=== PATIENT | female | born 1990 | race Caucasian/White ===

== ENCOUNTER → 2017-09-20 | Outpatient (CLI) | payer OTHER ==
[~2017-09-20] MED LIST: ESCI10 PO; Percocet 5-3251 EACH PO
== END ==
LOC: LAB 10:29 → LAB SHORT 10:29
PROVIDERS: Registered Nurse Community Health
DX: Z12.4 Encounter for screening for malignant neoplasm of cervix (principal); N94.89 Other specified conditions associated with female genital organs and menstrual cycle
CPT/HCPCS: 87529; G0123

== ENCOUNTER → 2019-11-01 | Outpatient (CLI) | payer OTHER | END | disposition home or self-care (01) | LOC: LAB SHORT 16:23 → LAB 16:23 | DX: Z34.03 Encounter for supervision of normal first pregnancy, third trimester (principal); Z3A.36 36 weeks gestation of pregnancy | CPT/HCPCS: 87081; 87147; 87184; 87653 ==

== ENCOUNTER 2019-11-27 01:48 | Inpatient (IN) | payer OTHER ==
[~2019-11-27] VITALS: Ht 157.5 cm; Wt 100.0 kg
[2019-11-27 10:15] LABS: BASOPHILS ABSOLUTE AUTO 0.02 K/mm3 (0.00-0.23); BASOPHILS PERCENT AUTO 0 % (0-2); EOSINOPHILS ABSOLUTE AUTO 0.07 K/mm3 (0.00-0.68); EOSINOPHILS PERCENT AUTO 1 % (0-6); Hematocrit 36.8 % (33.0-51.0); Hemoglobin 12.2 g/dL (11.5-16.0); IMMATURE GRAN ABSOLUTE AUTO 0.05 K/mm3 (0.00-0.10); IMMATURE GRAN PERCENT AUTO 0 % (0-1); LYMPHOCYTES ABSOLUTE AUTO 0.95 K/mm3 (0.84-5.20); LYMPHOCYTES PERCENT AUTO 6 % (21-46); MONOCYTES ABSOLUTE AUTO 0.61 K/mm3 (0.16-1.47); MONOCYTES PERCENT AUTO 4 % (4-13); Mean Corpuscular HGB 28.6 pg (26.0-34.0); Mean Corpuscular HGB Conc 33.2 g/dL (31.5-36.5); Mean Corpuscular Volume 86 fL (80-100); Mean Platelet Volume 9.3 fL (9.1-12.4); NEUTROPHILS ABSOLUTE AUTO 13.26 K/mm3 (1.96-9.15); NEUTROPHILS PERCENT AUTO 89 % (41-73); Platelet Count 190 K/mm3 (150-400); RDW Coefficient Variation 13.7 % (11.7-14.2); RDW Standard Deviation 42.7 fL (35.1-46.3); Red Blood Cell Count 4.27 M/mm3 (3.80-5.20); White Blood Cell Count 14.96 K/mm3 (4.00-11.30)
--- NOTE | 2019-11-28 04:02 | NUR ---
[id number] FROM Tito ROCHA RN, ASSUMED CARE OF PT AT THIS TIME
[2019-11-28 12:32] LABS: BASOPHILS ABSOLUTE AUTO 0.02 K/mm3 (0.00-0.23); BASOPHILS PERCENT AUTO 0 % (0-2); EOSINOPHILS ABSOLUTE AUTO 0.03 K/mm3 (0.00-0.68); EOSINOPHILS PERCENT AUTO 0 % (0-6); Hematocrit 33.7 % (33.0-51.0); Hemoglobin 10.8 g/dL (11.5-16.0); IMMATURE GRAN ABSOLUTE AUTO 0.05 K/mm3 (0.00-0.10); IMMATURE GRAN PERCENT AUTO 0 % (0-1); LYMPHOCYTES PERCENT AUTO 9 % (21-46); MONOCYTES PERCENT AUTO 6 % (4-13); Mean Corpuscular HGB 28.3 pg (26.0-34.0); Mean Corpuscular Volume 88 fL (80-100); Mean Platelet Volume 9.4 fL (9.1-12.4); NEUTROPHILS ABSOLUTE AUTO 12.61 K/mm3 (1.96-9.15); NEUTROPHILS PERCENT AUTO 84 % (41-73); Platelet Count 150 K/mm3 (150-400); RDW Coefficient Variation 14.1 % (11.7-14.2); RDW Standard Deviation 45.1 fL (35.1-46.3); Red Blood Cell Count 3.82 M/mm3 (3.80-5.20); White Blood Cell Count 15.01 K/mm3 (4.00-11.30)
--- NOTE | 2019-11-28 15:29 | NUR ---
RN ROUNDED TO HELP W/ . NB ATTEMPTING TO LATCH, WILL NOT STAY LATCHED AND IS COMING OFF AND ON THE BREAST. INSTRUCT/DEMO ORAL EXERCISES TO DO BEFORE EACH FEED TO HELP NB COORDINATE SUCK AND DROP BACK OF TONGUE. NIPPLES FLAT, SHIELD GIVEN TO HELP W/ LATCHING UNTIL SUCK CAN BECOME MORE COORDINATED. INSTRUCTED TO OVER BREAST EVERY 2-3 HOURS. PARENTS VERBALIZED UNDERSTANDING, DENY ANY FURTHER QUESTIONS OR CONCERNS.
== END 2019-11-29 11:39 | disposition home or self-care (01) | DRG 807 ==
LOC: OBS 01:48 → BC 01:50 → OBS 08:26 → BC 19:59
PROVIDERS: ADMIT Obstetrics & Gynecology
PROC: 00HU33Z Insertion of Infusion Device into Spinal Canal, Percutaneous Approach (ICD-10-PCS; 2019-11-27)
PROC: 3E0R3BZ Introduction of Anesthetic Agent into Spinal Canal, Percutaneous Approach (ICD-10-PCS; 2019-11-27)
PROC: 10D07Z6 Extraction of Products of Conception, Vacuum, Via Natural or Artificial Opening (ICD-10-PCS; principal; 2019-11-28)
PROC: 0HQ9XZZ Repair Perineum Skin, External Approach (ICD-10-PCS; 2019-11-28)
DX: O47.9 False labor, unspecified (principal); Z37.0 Single live birth; O62.1 Secondary uterine inertia; O70.0 First degree perineal laceration during delivery; O75.81 Maternal exhaustion complicating labor and delivery; Z3A.39 39 weeks gestation of pregnancy; O99.214 Obesity complicating childbirth; E66.01 Morbid (severe) obesity due to excess calories; O66.5 Attempted application of vacuum extractor and forceps
CPT/HCPCS: 36415; 51702; 59025; 85025; 86850; 86900; 86901; J1885; J2001; J2270; J2550; J2590; J3010; J7120; U0003

== ENCOUNTER → 2020-11-05 | Outpatient (CLI) | payer OTHER | END | disposition home or self-care (01) | LOC: LAB 12:00 → LAB SHORT 12:00 | DX: R30.0 Dysuria (principal) | CPT/HCPCS: 87077; 87086; 87186 ==

== ENCOUNTER → 2021-08-20 | Outpatient (CLI) | payer OTHER ==
[~2021-08-20] MED LIST changes: +C COMPLEX1000 M1 PO; +FENO145 PO; +HYDHCL25 PO; +IBUP800 PO; +IRON18 MG PO; +OMEP20ER PO; +PRENATAL TABLE1 EAC9 PO; +PSYSENPA PO; +SIMV80 PO; +VENL150ER PO; +VITAMIN D5000 UNIT PO
== END | disposition home or self-care (01) ==
LOC: LAB SHORT 14:50 → LAB 14:50
DX: Z34.83 Encounter for supervision of other normal pregnancy, third trimester (principal); Z3A.36 36 weeks gestation of pregnancy
CPT/HCPCS: 87081; 87150; 87184

== ENCOUNTER 2021-09-09 07:54 | Inpatient (IN) | payer OTHER ==
[~2021-09-09] VITALS: Ht 157.5 cm; Wt 98.0 kg
[~2021-09-09 07:54] MED LIST changes: -C COMPLEX1000 M1 PO; -FENO145 PO; -HYDHCL25 PO; -IBUP800 PO; -IRON18 MG PO; -OMEP20ER PO; -PRENATAL TABLE1 EAC9 PO; -PSYSENPA PO; -SIMV80 PO; -VENL150ER PO; -VITAMIN D5000 UNIT PO
[2021-09-09] MEDS ORDERED: VENL150ER PO (08:42)
[2021-09-09] MEDS ORDERED: PRENATAL TABLE1 EAC9 PO (08:42)
[2021-09-09 08:43] LABS: BASOPHILS ABSOLUTE AUTO 0.04 K/mm3 (0.00-0.23); BASOPHILS PERCENT AUTO 0 % (0-2); EOSINOPHILS ABSOLUTE AUTO 0.06 K/mm3 (0.00-0.68); EOSINOPHILS PERCENT AUTO 1 % (0-6); Hematocrit 32.7 % (33.0-51.0); Hemoglobin 11.3 g/dL (11.5-16.0); IMMATURE GRAN ABSOLUTE AUTO 0.05 K/mm3 (0.00-0.10); IMMATURE GRAN PERCENT AUTO 0 % (0-1); LYMPHOCYTES ABSOLUTE AUTO 1.73 K/mm3 (0.84-5.20); LYMPHOCYTES PERCENT AUTO 14 % (21-46); MONOCYTES PERCENT AUTO 5 % (4-13); Mean Corpuscular HGB 28.1 pg (26.0-34.0); Mean Corpuscular HGB Conc 34.6 g/dL (31.5-36.5); Mean Corpuscular Volume 81 fL (80-100); Mean Platelet Volume 9.6 fL (9.1-12.4); NEUTROPHILS ABSOLUTE AUTO 9.84 K/mm3 (1.96-9.15); NEUTROPHILS PERCENT AUTO 80 % (41-73); Platelet Count 190 K/mm3 (150-400); RDW Coefficient Variation 13.7 % (11.7-14.2); Red Blood Cell Count 4.02 M/mm3 (3.80-5.20); White Blood Cell Count 12.32 K/mm3 (4.00-11.30)
[2021-09-09] MEDS ORDERED: FENO145 PO (08:43)
[2021-09-09] MEDS ORDERED: HYDHCL25 PO (08:44)
[2021-09-09] MEDS ORDERED: OMEP20ER PO (08:44)
[2021-09-09] MEDS ORDERED: VITAMIN D5000 UNIT PO (08:46)
[2021-09-09] MEDS ORDERED: C COMPLEX1000 M1 PO (08:47)
[2021-09-09] MEDS ORDERED: PSYSENPA PO (08:47)
[2021-09-09] MEDS ORDERED: SIMV80 PO (08:48)
[2021-09-09] MEDS ORDERED: IRON18 MG PO (08:48)
[2021-09-09 10:32] LABS: PO2 Cord - Arterial 14.4 mmHg (16-20); pH Cord - Arterial 7.39 (7.28-7.35)
[2021-09-09 10:39] LABS: PCO2 Cord - Venous 27.1 mmHg (40-50); PO2 Cord - Venous 17.4 mmHg (28-32); pH Umbilical Cord - Venous 7.48 (7.26-7.35)
[2021-09-10 06:23] LABS: BASOPHILS ABSOLUTE AUTO 0.05 K/mm3 (0.00-0.23); BASOPHILS PERCENT AUTO 0 % (0-2); EOSINOPHILS ABSOLUTE AUTO 0.19 K/mm3 (0.00-0.68); EOSINOPHILS PERCENT AUTO 2 % (0-6); Hematocrit 31.3 % (33.0-51.0); Hemoglobin 10.4 g/dL (11.5-16.0); IMMATURE GRAN ABSOLUTE AUTO 0.07 K/mm3 (0.00-0.10); IMMATURE GRAN PERCENT AUTO 1 % (0-1); LYMPHOCYTES ABSOLUTE AUTO 2.69 K/mm3 (0.84-5.20); LYMPHOCYTES PERCENT AUTO 22 % (21-46); MONOCYTES ABSOLUTE AUTO 0.67 K/mm3 (0.16-1.47); MONOCYTES PERCENT AUTO 5 % (4-13); Mean Corpuscular HGB 28.3 pg (26.0-34.0); Mean Corpuscular HGB Conc 33.2 g/dL (31.5-36.5); Mean Corpuscular Volume 85 fL (80-100); Mean Platelet Volume 9.7 fL (9.1-12.4); NEUTROPHILS ABSOLUTE AUTO 8.67 K/mm3 (1.96-9.15); NEUTROPHILS PERCENT AUTO 70 % (41-73); Platelet Count 158 K/mm3 (150-400); RDW Coefficient Variation 14.2 % (11.7-14.2); RDW Standard Deviation 43.8 fL (35.1-46.3); Red Blood Cell Count 3.68 M/mm3 (3.80-5.20); White Blood Cell Count 12.34 K/mm3 (4.00-11.30)
[2021-09-10] MEDS ORDERED: IBUP800 PO (09:57)
== END 2021-09-10 13:30 | disposition home or self-care (01) | DRG 807 ==
LOC: BC 07:54 → OBS 07:54 → BC 07:58 → OBS 08:18 → BC 08:19
PROVIDERS: ADMIT Obstetrics & Gynecology
PROC: 10E0XZZ Delivery of Products of Conception, External Approach (ICD-10-PCS; principal; 2021-09-09)
DX: O99.824 Streptococcus B carrier state complicating childbirth (principal); Z37.0 Single live birth; O77.0 Labor and delivery complicated by meconium in amniotic fluid; Z3A.39 39 weeks gestation of pregnancy; Z79.899 Other long term (current) drug therapy; Z88.0 Allergy status to penicillin; Z88.8 Allergy status to other drugs, medicaments and biological substances
CPT/HCPCS: 36415; 82803; 82947; 85025; 86850; 86900; 86901; A9270; J1885; J2001; J2590; J3010; J7120

== ENCOUNTER 2023-02-20 03:48 | Observation (INO) | payer OTHER ==
[~2023-02-20] VITALS: Ht 157.5 cm; Wt 96.0 kg
[~2023-02-20 03:48] MED LIST changes: +C COMPLEX1000 M1 PO; +FENO145 PO; +HYDHCL25 PO; +IBUP800 PO; +IRON18 MG PO; +OMEP20ER PO; +PRENATAL TABLE1 EAC9 PO; +PSYSENPA PO; +SIMV80 PO; +VENL150ER PO; +VITAMIN D5000 UNIT PO
[2023-02-20] MEDS ORDERED: ONDANSETRON4 MG/2 ML PO (05:00)
[2023-02-20 05:51] LABS: BASOPHILS ABSOLUTE AUTO 0.03 K/mm3 (0.00-0.23); BASOPHILS PERCENT AUTO 0 % (0-2); EOSINOPHILS ABSOLUTE AUTO 0.02 K/mm3 (0.00-0.68); EOSINOPHILS PERCENT AUTO 0 % (0-6); Hematocrit 35.1 % (33.0-51.0); Hemoglobin 11.8 g/dL (11.5-16.0); IMMATURE GRAN ABSOLUTE AUTO 0.06 K/mm3 (0.00-0.10); IMMATURE GRAN PERCENT AUTO 0 % (0-1); LYMPHOCYTES ABSOLUTE AUTO 0.85 K/mm3 (0.84-5.20); LYMPHOCYTES PERCENT AUTO 5 % (21-46); MONOCYTES ABSOLUTE AUTO 0.78 K/mm3 (0.16-1.47); MONOCYTES PERCENT AUTO 4 % (4-13); Mean Corpuscular HGB 29.4 pg (26.0-34.0); Mean Corpuscular HGB Conc 33.6 g/dL (31.5-36.5); Mean Corpuscular Volume 88 fL (80-100); Mean Platelet Volume 8.7 fL (9.1-12.4); NEUTROPHILS ABSOLUTE AUTO 16.79 K/mm3 (1.96-9.15); NEUTROPHILS PERCENT AUTO 91 % (41-73); Platelet Count 163 K/mm3 (150-400); RDW Coefficient Variation 12.2 % (11.7-14.2); RDW Standard Deviation 38.9 fL (35.1-46.3); Red Blood Cell Count 4.01 M/mm3 (3.80-5.20); White Blood Cell Count 18.53 K/mm3 (4.00-11.30)
[2023-02-20 06:27] LABS: Albumin, Blood 2.7 g/dL (3.4-5.0); Albumin/Globulin Ratio 0.7 (0.8-1.8); Bilirubin, Total 0.4 mg/dL (0.1-1.0); Bun/Creatinine Ratio 10.7 (12.0-20.0); Calcium, Blood 8.8 mg/dL (8.5-10.1); Creatinine, Blood 0.56 mg/dL (0.40-1.00); Globulin, Blood 3.7 g/dL (2.2-4.0); Potassium, Blood 3.5 mmol/L (3.5-5.5); Total Protein, Blood 6.4 g/dL (6.4-8.2)
[2023-02-20 13:15] VITALS: BP 136/78
[2023-02-20 14:26] LABS: Source, Urine Clean Catch
[2023-02-20 14:30] LABS: Appearance, Urine Clear (Clear); Bilirubin, Urine Neg (Neg); Blood, Urine Neg (Neg); Glucose Qualitative, Urine Neg (Neg); Ketones, Urine 3+ (Neg); Leukocyte Esterase, Urine Neg (Neg); Nitrite, Urine Neg (Neg); Protein, Urine 1+ (Neg); Urobilinogen, Urine NORM (Normal)
[2023-02-20 14:37] LABS: Color, Urine Pale Yellow (P-Yellow)
[2023-02-20 15:06] VITALS: BP 137/77
--- NOTE | 2023-02-20 18:29 | NUR ---
SHIFT SUMMARY PATIENT IS NEW ADMIT THIS SHIFT FOR POSSIBLE APPENDICITIS. PATIENT IS 28 WEEKS . HAVING PAIN IN RLQ. MEDICATED PER EMAR. IVF INFUSING, NPO AT THIS TIME. PATIENT RESTING AND REPORTS BETTER PAIN CONTROL. SPOUSE IN ROOM TO ASSIST. VSS. CALL LIGHTIN REACH.
[2023-02-20 19:33] VITALS: BP 125/64
[2023-02-21 04:27] VITALS: BP 120/74
[2023-02-21 05:01] LABS: BASOPHILS ABSOLUTE AUTO 0.02 K/mm3 (0.00-0.23); BASOPHILS PERCENT AUTO 0 % (0-2); EOSINOPHILS ABSOLUTE AUTO 0.09 K/mm3 (0.00-0.68); EOSINOPHILS PERCENT AUTO 1 % (0-6); Hematocrit 29.2 % (33.0-51.0); Hemoglobin 9.8 g/dL (11.5-16.0); IMMATURE GRAN ABSOLUTE AUTO 0.05 K/mm3 (0.00-0.10); IMMATURE GRAN PERCENT AUTO 1 % (0-1); LYMPHOCYTES ABSOLUTE AUTO 1.41 K/mm3 (0.84-5.20); LYMPHOCYTES PERCENT AUTO 14 % (21-46); MONOCYTES ABSOLUTE AUTO 0.65 K/mm3 (0.16-1.47); MONOCYTES PERCENT AUTO 6 % (4-13); Mean Corpuscular HGB 29.7 pg (26.0-34.0); Mean Corpuscular HGB Conc 33.6 g/dL (31.5-36.5); Mean Corpuscular Volume 89 fL (80-100); Mean Platelet Volume 9.1 fL (9.1-12.4); NEUTROPHILS ABSOLUTE AUTO 7.89 K/mm3 (1.96-9.15); NEUTROPHILS PERCENT AUTO 78 % (41-73); Platelet Count 139 K/mm3 (150-400); RDW Coefficient Variation 12.5 % (11.7-14.2); RDW Standard Deviation 39.8 fL (35.1-46.3); White Blood Cell Count 10.11 K/mm3 (4.00-11.30)
--- NOTE | 2023-02-21 07:42 | NUR ---
SHIFT SUMMARY NOC. PT A/O X4. PT MEDICATED FOR PAIN/NAUSEA WITH RELIEF. PT VOIDING AND AMBULATING TO THE BATHROOM. PT RESTED WITH EYES CLOSED AND CALL LIGHT IN REACH.
[2023-02-21 07:58] VITALS: BP 121/65
--- NOTE | 2023-02-21 14:15 | NUR ---
FHT DOPPLER DONE. AUDIBLE FHT'S 125-130. PT STATES SHE'S BEEN FEELING A LOT OF MOVEMENT.
--- NOTE | 2023-02-21 14:17 | NUR ---
DISCHARGE PT LEFT VIA WHEELCHAIR. SHE REPORTS THAT HER PAIN IS MUCH IMPROVED TODAY. BELIEVES IT WILL BE MANAGEABLE WITH TYLENOL AT HOME. FBP UP TO TAKE HEART TONES PRIOR TO DISCHARGE. INSTRUCTIONS GONE OVER WITH PATIENT AND SPOUSE. NO FURTHER QUESTONS IV REMOVED WNL.
== END 2023-02-21 14:23 | disposition home or self-care (01) ==
LOC: ER 03:48 → SURS 03:49
PROVIDERS: Student in an Organized Health Care Education/Training Program; ADMIT Obstetrics & Gynecology
DX: O99.891 Other specified diseases and conditions complicating pregnancy (principal); R10.9 Unspecified abdominal pain; Z3A.26 26 weeks gestation of pregnancy
CPT/HCPCS: 36415; 72195; 74181; 76857; 80053; 82947; 83605; 85025; 87086; 96365; 96366; 96367; 96375; 96376; 99285-25; A9270; G0378; J0696; J2270; J2405; J7030; J7050; J7120

== ENCOUNTER 2023-09-22 05:49 | Emergency (ER) | payer OTHER ==
[~2023-09-22] VITALS: Ht 157.5 cm; Wt 95.2 kg
[~2023-09-22 05:49] MED LIST changes: +ONDANSETRON4 MG/2 ML PO
[2023-09-22 06:17] LABS: BASOPHILS ABSOLUTE AUTO 0.07 K/mm3 (0.00-0.23); BASOPHILS PERCENT AUTO 1 % (0-2); EOSINOPHILS PERCENT AUTO 3 % (0-6); Hematocrit 38.7 % (33.0-51.0); Hemoglobin 13.2 g/dL (11.5-16.0); IMMATURE GRAN ABSOLUTE AUTO 0.03 K/mm3 (0.00-0.10); IMMATURE GRAN PERCENT AUTO 0 % (0-1); LYMPHOCYTES PERCENT AUTO 25 % (21-46); MONOCYTES ABSOLUTE AUTO 0.61 K/mm3 (0.16-1.47); MONOCYTES PERCENT AUTO 6 % (4-13); Mean Corpuscular HGB 29.4 pg (26.0-34.0); Mean Corpuscular HGB Conc 34.1 g/dL (31.5-36.5); Mean Corpuscular Volume 86 fL (80-100); Mean Platelet Volume 9.3 fL (9.1-12.4); NEUTROPHILS ABSOLUTE AUTO 6.59 K/mm3 (1.96-9.15); NEUTROPHILS PERCENT AUTO 65 % (41-73); Platelet Count 263 K/mm3 (150-400); RDW Standard Deviation 37.8 fL (35.1-46.3); Red Blood Cell Count 4.49 M/mm3 (3.80-5.20)
[2023-09-22 06:44] LABS: Albumin, Blood 3.8 g/dL (3.4-5.0); Bilirubin, Total 0.3 mg/dL (0.1-1.0); Calcium, Blood 9.2 mg/dL (8.5-10.1); Creatinine, Blood 1.06 mg/dL (0.40-1.00); Globulin, Blood 3.9 g/dL (2.2-4.0); Potassium, Blood 3.9 mmol/L (3.5-5.5); Total Protein, Blood 7.7 g/dL (6.4-8.2)
[2023-09-22] MEDS ORDERED: Ondansetron HCl 2 MG / ML 2ML Vial IV ONE (07:00)
[2023-09-22] MEDS ORDERED: HYDROmorphone HCl/Pf 1MG SYR IV ONE (07:00)
[2023-09-22] MEDS ORDERED: Lactated Ringer's 1,000 ML IV ONE (08:55)
[2023-09-22] MEDS ORDERED: Lidocaine 2% Viscous Soln 15 ML UDC PO ONE (09:40)
[2023-09-22] MEDS ORDERED: Mag Hydrox/AL Hydrox/Simeth 30 ML UDC PO ONE (09:40)
[2023-09-22] MEDS ORDERED: PROM25 PO (09:42)
[2023-09-22] MEDS ORDERED: OXYC5 PO (09:42)
[2023-09-22 10:30] VITALS: BP 164/86
[2023-09-22] MEDS ORDERED: Venlafaxine HCl75 MG PO (20:51)
== END 2023-09-22 10:36 | disposition home or self-care (01) ==
LOC: ER 05:49
PROVIDERS: Emergency Medicine
DX: K80.70 Calculus of gallbladder and bile duct without cholecystitis without obstruction (principal); R07.9 Chest pain, unspecified; Z88.0 Allergy status to penicillin; Z91.018 Allergy to other foods; Z79.899 Other long term (current) drug therapy
CPT/HCPCS: 71045; 76705; 80053; 81025; 83690; 84484; 85025; 93005; 93010; 96361; 96374; 96375; 99284-25; A9270; J1170; J2405; J7120

== ENCOUNTER 2023-09-22 14:35 | Observation (INO) | payer OTHER ==
[~2023-09-22] VITALS: Ht 162.6 cm; Wt 98.0 kg
[~2023-09-22 14:35] MED LIST changes: +OXYC5 PO; +PROM25 PO
[2023-09-22] MEDS ORDERED: Ketorolac Tromethamine 30mg Vial IV ONE (14:55)
[2023-09-22] MEDS ORDERED: Ondansetron HCl 2 MG / ML 2ML Vial IV ONE ×2 (14:55→19:25)
[2023-09-22] MEDS ORDERED: Ketorolac Tromethamine 15mg Vial IV ONE (15:25)
[2023-09-22 15:46] LABS: BASOPHILS ABSOLUTE AUTO 0.06 K/mm3 (0.00-0.23); BASOPHILS PERCENT AUTO 0 % (0-2); EOSINOPHILS ABSOLUTE AUTO 0.12 K/mm3 (0.00-0.68); EOSINOPHILS PERCENT AUTO 1 % (0-6); Hematocrit 39.7 % (33.0-51.0); Hemoglobin 13.9 g/dL (11.5-16.0); IMMATURE GRAN ABSOLUTE AUTO 0.03 K/mm3 (0.00-0.10); IMMATURE GRAN PERCENT AUTO 0 % (0-1); LYMPHOCYTES ABSOLUTE AUTO 1.89 K/mm3 (0.84-5.20); LYMPHOCYTES PERCENT AUTO 13 % (21-46); MONOCYTES ABSOLUTE AUTO 0.58 K/mm3 (0.16-1.47); MONOCYTES PERCENT AUTO 4 % (4-13); Mean Corpuscular HGB 29.3 pg (26.0-34.0); Mean Corpuscular Volume 84 fL (80-100); NEUTROPHILS ABSOLUTE AUTO 12.29 K/mm3 (1.96-9.15); NEUTROPHILS PERCENT AUTO 82 % (41-73); Platelet Count 284 K/mm3 (150-400); RDW Coefficient Variation 11.9 % (11.7-14.2); RDW Standard Deviation 35.8 fL (35.1-46.3); Red Blood Cell Count 4.74 M/mm3 (3.80-5.20); White Blood Cell Count 14.97 K/mm3 (4.00-11.30)
[2023-09-22 16:11] LABS: Bilirubin, Total 0.6 mg/dL (0.1-1.0); Calcium, Blood 9.1 mg/dL (8.5-10.1); Creatinine, Blood 0.75 mg/dL (0.40-1.00); Globulin, Blood 4.2 g/dL (2.2-4.0); Potassium, Blood 3.9 mmol/L (3.5-5.5); Total Protein, Blood 8.2 g/dL (6.4-8.2)
[2023-09-22] MEDS ORDERED: NS 1,000 ML IV SCH (19:25)
[2023-09-22] MEDS ORDERED: HYDROmorphone HCl/Pf 1MG SYR IV ONE (20:45)
[2023-09-22] MEDS ORDERED: Venlafaxine HCl75 MG PO (20:51)
[2023-09-22] MEDS ORDERED: Ondansetron HCl 2 MG / ML 2ML Vial IV PRN (21:05)
[2023-09-22] MEDS ORDERED: Lactated Ringer's 1,000 ML IV SCH (21:05)
[2023-09-22] MEDS ORDERED: HYDROcodone 5-APAP 325 TAB PO PRN (21:05)
[2023-09-22] MEDS ORDERED: Ondansetron 4 MG TAB PO PRN (21:10)
[2023-09-22] MEDS ORDERED: FentaNYL Citrate 50 MCG/ML 2 ML Injection IV PRN (21:10)
[2023-09-22] MEDS ORDERED: LevoFLOXacin 500MG/D5W 100ML 100 ML IV SCH (22:00)
[2023-09-22 22:10] VITALS: BP 144/83
[2023-09-23] VITALS (16 sets, daily range): BP systolic 113–151; BP diastolic 57–87
--- NOTE | 2023-09-23 06:10 | NUR ---
Patient arrived to room from ED around 2200, admission process completed at bedside with patient, . Patient alert and oriented x4, VSS, c/o nausea, vomiting, pain to abdomen and chest, see eMAR for PRN administrations. LR @ 125 mL/hr as well as Levaquin tolerated well to left hand PIV. Patient ambulating to restroom with standby assistance for needs.
[2023-09-23] MEDS ORDERED: Indocyanine Green 25 MG Vial IV ONE (09:00)
[2023-09-23] MEDS ORDERED: Venlafaxine HCl 25 MG Tab PO SCH (09:00)
--- NOTE | 2023-09-23 09:58 | NUR ---
History, Chart, Medications and Allergies reviewed before start of procedure.VOIDED PRIOR TO SURGERY
[2023-09-23] MEDS ORDERED: Dexamethasone Sodium Phosphate 4 MG/ML 1ML Vial IV ONE (10:05)
[2023-09-23] MEDS ORDERED: Ondansetron HCl 2 MG / ML 2ML Vial IV ONE (10:05)
[2023-09-23] MEDS ORDERED: FentaNYL Citrate 50 MCG/ML 2 ML Injection IV ONE (10:05)
[2023-09-23] MEDS ORDERED: Bupivacaine 0.5% HCl 5 MG/ML 30MLVIAL ONE (10:08)
[2023-09-23] MEDS ORDERED: Midazolam HCl 1MG / ML 2ML Vial IV ONE (10:45)
[2023-09-23] MEDS ORDERED: Midazolam HCl 1MG / ML 2ML Vial ONE (10:46)
[2023-09-23] MEDS ORDERED: propofoL 20 ML IV ONE (10:49)
[2023-09-23] MEDS ORDERED: FentaNYL Citrate 50 MCG/ML 2 ML Injection ONE ×2 (10:49→11:11)
[2023-09-23] MEDS ORDERED: SuccINYLCHOLINE Chloride 100 MG/5 ML 5MLSYR ONE (10:50)
[2023-09-23] MEDS ORDERED: Rocuronium Bromide 10 MG/ML 5ML Injection IV ONE ×2 (10:56→11:59)
[2023-09-23] MEDS ORDERED: Dexamethasone Sod Phos 10 MG/ML 1ML VIAL ONE (11:01)
[2023-09-23] MEDS ORDERED: Phenylephrine HCl 100 MCG/ML-NS 10MLSYR (1MG/10ML) ONE (11:01)
[2023-09-23] MEDS ORDERED: Ondansetron HCl 2 MG / ML 2ML Vial ONE (11:01)
--- NOTE | 2023-09-23 11:13 | NUR ---
0945 TO DAY SURGERY VIA WHEELCHAIR
[2023-09-23] MEDS ORDERED: Lidocaine HCl 2% 20 ML MDV ONE (11:59)
[2023-09-23] MEDS ORDERED: Sugammadex Sodium 200 MG/2ML SDV (100 MG/ML) ONE (11:59)
[2023-09-23] MEDS ORDERED: Ketorolac Tromethamine 30mg Vial ONE (11:59)
[2023-09-23] MEDS ORDERED: Labetalol HCL 5 MG/ML 4ML Injection (Single Dose) ONE (12:00)
[2023-09-23] MEDS ORDERED: HYDROmorphone HCl/Pf 1MG SYR ONE (12:18)
--- NOTE | 2023-09-23 14:52 | NUR ---
1315 RETURNED TO ROOM POST OP. PT CRYING-PTS CONTACTED BY PHONE AND PT STATES CRYING BECAUSE SHE WANTS HER HERE. ABD WITH 4 LAP SITES WITH SKIN GLUE, NO DRAINAGE. PT REPORTS PAIN IS AT ACCEPTABLE LEVEL, DENIES NUSEA
--- NOTE | 2023-09-23 16:34 | NUR ---
PT LYING IN BED WITH EYES CLOSED, AND BABY AT BEDSIDE. HAS BEEN UP TO BR WITH STANDBY ASSIST AND VOIDING CLEAR YELLOW URINE. DENIES NAUSEA, TATUM CLEAR LIQUIDS. LAP SITES WITHOUT DRAINAGE
[2023-09-24 04:19] VITALS: BP 104/60
--- NOTE | 2023-09-24 06:31 | NUR ---
SHIFT SUMMARY PT A&O X4. VSS; AFEBRILE. PT C/O OF 7-8/10 PAIN IN ABDOMEN, ESPECIALLY IN "LEFT SIDE". PT REFERRING TO LUQ INCISION, WHICH HAS SLIGHT REDDENING AROUND THE INCISION SITE OTHERWISE WNL. PT DOES REPORT "GAS PAIN". STATES IS PASSING GAS, BUT NO BM. OTHER LAP SITES WNL. MEDICATION PER EMAR TO ALLEVIATE PAIN WITH MODERATE SUCCESS. PT VOIDING WELL, USING RESTROOM INDEPENDENTLY. PT AMBULATING IN ROOM AND HALLWAYS, TOLERATING WELL. PT'S HOME CPAP SET UP IN ROOM AND SELF MANAGES. PT DID WAKE UP DURING THE MORNING, "FEELING SHAKY AND COLD" AND APPEARS MILDLY PALE. CBG 87, ORANGE JUICE GIVEN AND PT STATES "WENT AWAY AND SLOWLY STARTED FEELING BETTER". SBP 104/60 AT THIS TIME, HR 71, AFEBRILE, AND SPO2 92%. OF NOTE PREVIOUS SBP 127 AND 113. OTHERWISE PT RESTED ON AND OFF THROUGHOUT THE NIGHT. CALL LIGHT IN REACH, ABLE TO MAKE NEEDS KNOWN. PT TOLERATING PO INTAKE, DENIES N/V. WILL UPDATE ONCOMING RN
[2023-09-24 07:32] VITALS: BP 103/52
[2023-09-24] MEDS ORDERED: OxyCODONE HCL 5 MG TAB PO PRN (10:00)
[2023-09-24] MEDS ORDERED: OXYC5 PO (12:20)
--- NOTE | 2023-09-24 16:17 | NUR ---
DISCHARGE INSTRUCTIONS REVIEWED WITH PATIENT AND HER AND QUESTIONS ANSWERED. PT TATUM PO FOOD AND FLUIDS, AMBULATING IN ROOM. VOIDING CLEAR YELLOW URINE. ABD INCISIONS INTACT WITH WOUND GLUE. REPORTS ABD IS PAINFUL BUT PAIN IS ADEQUATELY CONTROLLED
--- NOTE | 2023-09-24 16:45 | NUR ---
1640 discharged to home with
== END 2023-09-24 17:04 | disposition home or self-care (01) ==
LOC: ER 14:35 → SURS 21:27
PROVIDERS: Physician Assistant; Surgery; ADMIT Surgery
PROC: 8E0W4CZ Robotic Assisted Procedure of Trunk Region, Percutaneous Endoscopic Approach (ICD-10-PCS; principal; 2023-09-23 10:30)
PROC: 0FT44ZZ Resection of Gallbladder, Percutaneous Endoscopic Approach (ICD-10-PCS; principal; 2023-09-23 10:30)
DX: K80.00 Calculus of gallbladder with acute cholecystitis without obstruction (principal); K76.0 Fatty (change of) liver, not elsewhere classified; K82.1 Hydrops of gallbladder; E66.9 Obesity, unspecified; M41.9 Scoliosis, unspecified; G43.909 Migraine, unspecified, not intractable, without status migrainosus; J45.909 Unspecified asthma, uncomplicated; Z79.899 Other long term (current) drug therapy; Z88.1 Allergy status to other antibiotic agents
CPT/HCPCS: 76705; 80053; 82947; 85025; 88304; 94762; 96361; 96374; 96375; 96376; 99285-25; A9270; G0378; J0330; J1100; J1170; J1885; J1956; J2250; J2371; J2405; J2704; J3010; J7030; J7120

== ENCOUNTER 2024-02-07 08:04 | Day surgery (SDC) | payer OTHER ==
[~2024-02-07] VITALS: Ht 159 cm; Wt 101.2 kg
[2024-02-07] VITALS (14 sets, daily range): BP systolic 106–145; BP diastolic 62–89
[~2024-02-07 08:04] MED LIST changes: +Adipex-P37.5 M1 PO; +Apple Cider Vi300 MG PO; +BUPR150ER PO; +Bupivacaine 0.5% HCl 5 MG/ML 30MLVIAL ONE; +CLON.5; +ESCI20 PO; +FLUT.05NI; +FLUT1DIS5; +NIFE30ER PO; +POLY500 PO; +VALA500 PO; +VENL75ER PO; +Venlafaxine HCl75 MG PO; +Zofran4 MG PO
[2024-02-07] MEDS ORDERED: Lactated Ringer's 1,000 ML IV SCH ×2 (08:25→10:50)
--- NOTE | 2024-02-07 08:41 | NUR ---
Ambulatory in Day Surgery History, Chart, Medications and Allergies reviewed before start of procedure.Patient confirms NPO status and agrees with scheduled surgery. Patient reports completing Chlorhexadine shower X2 prior to admission to hospital. PATIENT STATES RIGHT RIB PAIN SECONDAY TO SLEEPING WRONG LAST NIGHT.
[2024-02-07] MEDS ORDERED: Rocuronium Bromide 10 MG/ML 5ML Injection IV ONE ×2 (08:52→09:44)
[2024-02-07] MEDS ORDERED: propofoL 20 ML IV ONE (08:52)
[2024-02-07] MEDS ORDERED: FentaNYL Citrate 50 MCG/ML 2 ML Injection ONE (08:52)
[2024-02-07] MEDS ORDERED: Lidocaine HCl 2% 20 ML MDV ONE (08:52)
[2024-02-07] MEDS ORDERED: Famotidine 10 MG/ML 2ML Vial ONE (08:52)
[2024-02-07] MEDS ORDERED: Magnesium Sulfate 500 MG / ML 2ML Vial ONE (08:54)
[2024-02-07] MEDS ORDERED: Dexamethasone Sod Phos 10 MG/ML 1ML VIAL ONE (09:07)
[2024-02-07] MEDS ORDERED: Ondansetron HCl 2 MG / ML 2ML Vial ONE (09:07)
[2024-02-07] MEDS ORDERED: Ketorolac Tromethamine 30mg Vial ONE (09:07)
[2024-02-07] MEDS ORDERED: HYDROmorphone HCl/Pf 1MG SYR IV PRN (09:25)
[2024-02-07] MEDS ORDERED: Droperidol 5 mg/2 ml Vial IV PRN (09:25)
[2024-02-07] MEDS ORDERED: FentaNYL Citrate 50 MCG/ML 2 ML Injection IV PRN ×2 (09:25→10:45)
[2024-02-07] MEDS ORDERED: Albuterol 2.5 MG/3 ML VIAL INH PRN (09:25)
[2024-02-07] MEDS ORDERED: Sugammadex Sodium 200 MG/2ML SDV (100 MG/ML) ONE (09:58)
[2024-02-07] MEDS ORDERED: HYDROmorphone HCl/Pf 1MG SYR ONE (09:58)
[2024-02-07] MEDS ORDERED: DiphenhydrAMINE HCL 25 MG Cap PO PRN (10:45)
[2024-02-07] MEDS ORDERED: FLU VACC TS2024-25(6MOS UP)/PF 45 MCG/0.5 ML SYRINGE IM SCH (10:50)
[2024-02-07] MEDS ORDERED: Ondansetron HCl 2 MG / ML 2ML Vial IV PRN (10:50)
[2024-02-07] MEDS ORDERED: HYDROcodone 5-APAP 325 TAB PO PRN (10:50)
[2024-02-07] MEDS ORDERED: OxyCODONE HCL 5 MG TAB PO PRN (10:50)
[2024-02-07] MEDS ORDERED: Acetaminophen 325 MG TABLET PO PRN (10:50)
[2024-02-07] MEDS ORDERED: Simethicone 80 MG Chew PO PRN (10:50)
[2024-02-07] MEDS ORDERED: Cyclobenzaprine HCl 10 MG Tab PO PRN (10:50)
[2024-02-07] MEDS ORDERED: Ibuprofen 400 MG Tab PO PRN (10:55)
[2024-02-07] MEDS ORDERED: Ketorolac Tromethamine 30mg Vial IV SCH (12:00)
--- NOTE | 2024-02-07 19:17 | NUR ---
SHIFT SUMMARY PT HAS DONE VERY WELL POST OP. TOLERATING DIET, VOIDING, AMBULATING WELL, NO DRNG TO EITHER ABD DRSG. PLEASANT & COOPERATIVE.
--- NOTE | 2024-02-08 04:02 | NUR ---
SHIFT SUMMARY POD1 EXCISION OF ABD WALL MASS AND OVARIAN CYST. DRESSINGS REMAIN C/D/I. VSS. PT HAS SLEPT ON AND OFF T/O THE NIGHT. AMBULATING TO THE BATHROOM INDEP, VOIDING W/O DIFFICULTY. PT REPORTS NO VAGINAL BLEEDING T/O THE NIGHT. PT MEDICATED FOR PAIN W/ TORADOL AND OXY W/TOLLERABLE RELIEF. PT TOLLERATING PO INTAKE W/O N/V, DENIES PASSING FLATTUS. OVERALL NO ACUTE EVENTS NOTED. THE PATIENT IS CURRENTLY SLEEPING, IN NO DISTRESS, CALL LIGHT IN REACH
[2024-02-08 04:31] VITALS: BP 102/62
[2024-02-08 04:43] LABS: BASOPHILS ABSOLUTE AUTO 0.05 K/mm3 (0.00-0.23); BASOPHILS PERCENT AUTO 0 % (0-2); EOSINOPHILS ABSOLUTE AUTO 0.07 K/mm3 (0.00-0.68); EOSINOPHILS PERCENT AUTO 1 % (0-6); Hematocrit 34.9 % (33.0-51.0); IMMATURE GRAN ABSOLUTE AUTO 0.03 K/mm3 (0.00-0.10); IMMATURE GRAN PERCENT AUTO 0 % (0-1); LYMPHOCYTES ABSOLUTE AUTO 2.31 K/mm3 (0.84-5.20); LYMPHOCYTES PERCENT AUTO 18 % (21-46); MONOCYTES ABSOLUTE AUTO 0.89 K/mm3 (0.16-1.47); MONOCYTES PERCENT AUTO 7 % (4-13); Mean Corpuscular HGB 29.9 pg (26.0-34.0); Mean Corpuscular HGB Conc 34.4 g/dL (31.5-36.5); Mean Corpuscular Volume 87 fL (80-100); Mean Platelet Volume 9.3 fL (9.1-12.4); NEUTROPHILS ABSOLUTE AUTO 9.75 K/mm3 (1.96-9.15); NEUTROPHILS PERCENT AUTO 75 % (41-73); Platelet Count 228 K/mm3 (150-400); RDW Coefficient Variation 11.9 % (11.7-14.2); RDW Standard Deviation 37.6 fL (35.1-46.3); Red Blood Cell Count 4.01 M/mm3 (3.80-5.20)
[2024-02-08 07:25] VITALS: BP 120/73
--- NOTE | 2024-02-08 12:30 | NUR ---
SHIFT SUMMARY AND DISCHARGE PATIENT ALERT AND INTERACTIVE. PATIENT INDEPENDENT IN THE ROOM. PAIN CONTROLLED WITH ORAL PAIN MEDS. DISCHARGE ORDERS REVIEWED WITH PATIENT AND FAMILY. IV DC'D, ROOM CHECK DONE BEFORE DEPARTURE. PATIENT TAKEN OUT VIA WHEELCHAIR.
== END 2024-02-08 13:03 | disposition home or self-care (01) ==
LOC: ORSCMMR 08:04 → EDSTATUS 09:00 → SURS 09:00 → ORD 09:00 → MEDS 11:30 → SURS 11:30 → ORSCMMR 02-08 13:03 → SURS 02-08 13:03
PROVIDERS: Obstetrics & Gynecology; Surgery
PROC: 0UB10ZZ Excision of Left Ovary, Open Approach (ICD-10-PCS; principal; 2024-02-07 09:00)
PROC: 0JB80ZZ Excision of Abdomen Subcutaneous Tissue and Fascia, Open Approach (ICD-10-PCS; 2024-02-07 09:00)
DX: D48.19 Other specified neoplasm of uncertain behavior of connective and other soft tissue (principal); D27.1 Benign neoplasm of left ovary; F32.A Depression, unspecified; Z88.0 Allergy status to penicillin; Z88.8 Allergy status to other drugs, medicaments and biological substances; Z79.899 Other long term (current) drug therapy; Z98.890 Other specified postprocedural states; Z90.49 Acquired absence of other specified parts of digestive tract
CPT/HCPCS: 36415; 85025; 88305; A9270; J1100; J1171; J1885; J2405; J2704; J3010; J3475; J7120

== ENCOUNTER 2024-07-15 07:54 | Emergency (ER) | payer OTHER ==
[~2024-07-15] VITALS: Ht 157.5 cm; Wt 99.8 kg
[~2024-07-15 07:54] MED LIST changes: -Bupivacaine 0.5% HCl 5 MG/ML 30MLVIAL ONE
[2024-07-15 09:39] LABS: BASOPHILS ABSOLUTE AUTO 0.04 K/mm3 (0.00-0.23); BASOPHILS PERCENT AUTO 0 % (0-2); EOSINOPHILS ABSOLUTE AUTO 0.08 K/mm3 (0.00-0.68); EOSINOPHILS PERCENT AUTO 1 % (0-6); Hematocrit 37.6 % (33.0-51.0); IMMATURE GRAN ABSOLUTE AUTO 0.05 K/mm3 (0.00-0.10); IMMATURE GRAN PERCENT AUTO 0 % (0-1); LYMPHOCYTES ABSOLUTE AUTO 0.52 K/mm3 (0.84-5.20); LYMPHOCYTES PERCENT AUTO 3 % (21-46); MONOCYTES ABSOLUTE AUTO 0.36 K/mm3 (0.16-1.47); MONOCYTES PERCENT AUTO 2 % (4-13); Mean Corpuscular HGB Conc 34.6 g/dL (31.5-36.5); Mean Corpuscular Volume 84 fL (80-100); Mean Platelet Volume 9.1 fL (9.1-12.4); NEUTROPHILS ABSOLUTE AUTO 14.17 K/mm3 (1.96-9.15); NEUTROPHILS PERCENT AUTO 93 % (41-73); Platelet Count 210 K/mm3 (150-400); RDW Coefficient Variation 12.5 % (11.7-14.2); RDW Standard Deviation 37.5 fL (35.1-46.3); Red Blood Cell Count 4.48 M/mm3 (3.80-5.20); White Blood Cell Count 15.22 K/mm3 (4.00-11.30)
[2024-07-15 09:58] LABS: Albumin, Blood 3.2 g/dL (3.4-5.0); Albumin/Globulin Ratio 0.7 (0.8-1.8); Bilirubin, Total 0.4 mg/dL (0.1-1.0); Bun/Creatinine Ratio 15.1 (12.0-20.0); Calcium, Blood 8.9 mg/dL (8.5-10.1); Creatinine, Blood 0.53 mg/dL (0.40-1.00); Globulin, Blood 4.3 g/dL (2.2-4.0); Potassium, Blood 3.6 mmol/L (3.5-5.5); Total Protein, Blood 7.5 g/dL (6.4-8.2)
[2024-07-15] MEDS ORDERED: NS 1,000 ML IV SCH (10:20)
[2024-07-15] MEDS ORDERED: Ondansetron HCl 2 MG / ML 2ML Vial IV ONE (10:40)
[2024-07-15 11:45] VITALS: BP 124/72
[2024-07-15] MEDS ORDERED: ONDA4ODT MM (11:47)
[2024-07-15] MEDS ORDERED: LOPE2C PO (11:47)
== END 2024-07-15 12:00 | disposition home or self-care (01) ==
LOC: ER 07:54
PROVIDERS: Emergency Medicine
DX: O21.9 Vomiting of pregnancy, unspecified (principal); O99.282 Endocrine, nutritional and metabolic diseases complicating pregnancy, second trimester; E86.0 Dehydration; R19.7 Diarrhea, unspecified; Z3A.18 18 weeks gestation of pregnancy; J45.909 Unspecified asthma, uncomplicated; Z79.899 Other long term (current) drug therapy; Z88.1 Allergy status to other antibiotic agents
CPT/HCPCS: 76815; 80053; 82947; 84484; 84703; 85025; 93005; 93010; 96361; 96374; 99284-25; J2405; J7030

== ENCOUNTER 2024-12-02 21:10 | Inpatient (IN) | payer OTHER ==
[2024-12-02] VITALS (10 sets, daily range): BP systolic 139–189; BP diastolic 76–90
[~2024-12-02] VITALS: Ht 157.5 cm; Wt 101.8 kg
[~2024-12-02 21:10] MED LIST changes: +LOPE2C PO; +ONDA4ODT MM
[2024-12-02] MEDS ORDERED: OXYTOCIN/RINGER'S LACTATE 500 ML IV PRN (21:20)
[2024-12-02] MEDS ORDERED: Oxytocin 10 Unit / ML Vial IM PRN (21:20)
[2024-12-02] MEDS ORDERED: Ondansetron HCl 2 MG / ML 2ML Vial IV PRN (21:20)
[2024-12-02] MEDS ORDERED: Methylergonovine Maleate 0.2MG / ML 1ML Amp IM PRN ×2 (21:20→22:05)
[2024-12-02] MEDS ORDERED: Carboprost Tromethamine 250 MCG/ML 1ML Amp IM PRN (21:20)
[2024-12-02] MEDS ORDERED: Tranexamic Acid 100 ML IV SCH (21:20)
[2024-12-02] MEDS ORDERED: OXYTOCIN/RINGER'S LACTATE 500 ML IV ONE (21:22)
[2024-12-02] MEDS ORDERED: Penicillin G Potassium 5,000,000 UNITS in NS 250 ML IV ONE (21:30)
[2024-12-02 21:37] LABS: BASOPHILS ABSOLUTE AUTO 0.02 K/mm3 (0.00-0.23); BASOPHILS PERCENT AUTO 0 % (0-2); EOSINOPHILS ABSOLUTE AUTO 0.06 K/mm3 (0.00-0.68); EOSINOPHILS PERCENT AUTO 1 % (0-6); Hematocrit 37.0 % (33.0-51.0); Hemoglobin 12.5 g/dL (11.5-16.0); IMMATURE GRAN ABSOLUTE AUTO 0.04 K/mm3 (0.00-0.10); IMMATURE GRAN PERCENT AUTO 0 % (0-1); LYMPHOCYTES ABSOLUTE AUTO 1.98 K/mm3 (0.84-5.20); LYMPHOCYTES PERCENT AUTO 20 % (21-46); MONOCYTES ABSOLUTE AUTO 0.67 K/mm3 (0.16-1.47); MONOCYTES PERCENT AUTO 7 % (4-13); Mean Corpuscular HGB Conc 33.8 g/dL (31.5-36.5); Mean Corpuscular Volume 81 fL (80-100); NEUTROPHILS ABSOLUTE AUTO 7.19 K/mm3 (1.96-9.15); NEUTROPHILS PERCENT AUTO 72 % (41-73); NRBC ABSOLUTE 0.00 K/mm3 (0.00-0.02); NRBC Auto 0.0 /100 WBC (0.0-0.2); Platelet Count 195 K/mm3 (150-400); RDW Coefficient Variation 15.0 % (11.7-14.2); RDW Standard Deviation 43.2 fL (35.1-46.3)
[2024-12-02] MEDS ORDERED: Benzocaine Topical Anesthetic Spray 60GM TOP PRN (22:00)
[2024-12-02] MEDS ORDERED: Witch Hazel/Glycerin PADS TOP PRN (22:00)
[2024-12-02] MEDS ORDERED: FLU VACC TS2025-26(6MOS UP)/PF 45 MCG/0.5 ML SYRINGE IM SCH (22:00)
[2024-12-02] MEDS ORDERED: OXYTOCIN/RINGER'S LACTATE 500 ML IV SCH (22:00)
[2024-12-03] MEDS ORDERED: Ketorolac Tromethamine 30mg Vial IV SCH
[2024-12-03 04:27] VITALS: BP 138/77
[2024-12-03 06:54] LABS: BASOPHILS ABSOLUTE AUTO 0.03 K/mm3 (0.00-0.23); BASOPHILS PERCENT AUTO 0 % (0-2); EOSINOPHILS ABSOLUTE AUTO 0.06 K/mm3 (0.00-0.68); EOSINOPHILS PERCENT AUTO 0 % (0-6); Hematocrit 34.5 % (33.0-51.0); Hemoglobin 11.4 g/dL (11.5-16.0); IMMATURE GRAN ABSOLUTE AUTO 0.06 K/mm3 (0.00-0.10); IMMATURE GRAN PERCENT AUTO 0 % (0-1); LYMPHOCYTES ABSOLUTE AUTO 2.41 K/mm3 (0.84-5.20); LYMPHOCYTES PERCENT AUTO 17 % (21-46); MONOCYTES ABSOLUTE AUTO 0.65 K/mm3 (0.16-1.47); MONOCYTES PERCENT AUTO 5 % (4-13); Mean Corpuscular HGB Conc 33.0 g/dL (31.5-36.5); Mean Corpuscular Volume 83 fL (80-100); NEUTROPHILS ABSOLUTE AUTO 11.15 K/mm3 (1.96-9.15); NEUTROPHILS PERCENT AUTO 78 % (41-73); NRBC ABSOLUTE 0.00 K/mm3 (0.00-0.02); NRBC Auto 0.0 /100 WBC (0.0-0.2); Platelet Count 170 K/mm3 (150-400); RDW Coefficient Variation 15.2 % (11.7-14.2); RDW Standard Deviation 45.3 fL (35.1-46.3)
[2024-12-03 07:57] VITALS: BP 135/71
[2024-12-03] MEDS ORDERED: Prenatal Vit/FE Fumarate/FA 1 Tab PO SCH (09:00)
[2024-12-03 11:41] VITALS: BP 146/84
[2024-12-03 16:58] VITALS: BP 160/81
[2024-12-03 17:08] VITALS: BP 144/76
[2024-12-03 19:22] VITALS: BP 128/75
== END 2024-12-03 20:10 | disposition home or self-care (01) | DRG 807 ==
LOC: OBS 21:10 → BC 21:14
PROVIDERS: ADMIT Obstetrics & Gynecology
PROC: 10E0XZZ Delivery of Products of Conception, External Approach (ICD-10-PCS; principal; 2024-12-02)
DX: O99.824 Streptococcus B carrier state complicating childbirth (principal); Z37.0 Single live birth; O69.81X0 Labor and delivery complicated by cord around neck, without compression, not applicable or unspecified; Z88.1 Allergy status to other antibiotic agents; Z88.8 Allergy status to other drugs, medicaments and biological substances; Z79.899 Other long term (current) drug therapy
CPT/HCPCS: 36415; 85025; 86850; 86900; 86901; A9270; J1885; J2590; J7120